=== PATIENT | male | born 1975 | race Caucasian/White ===

== ENCOUNTER 2024-05-03 07:47 | Day surgery (SDC) | payer OTHER ==
[~2024-05-03] VITALS: Ht 182.9 cm; Wt 85.2 kg
[~2024-05-03 07:47] MED LIST: Lactated Ringer's 1,000 ML IV ONE; propofoL 50 ML IV ONE
[2024-05-03] MEDS ORDERED: ALBU90OI (08:07)
[2024-05-03] MEDS ORDERED: CENTRUM SILVER1 EAC2 (08:08)
[2024-05-03] MEDS ORDERED: CHLO4 (08:08)
[2024-05-03] MEDS ORDERED: Lactated Ringer's 1,000 ML IV ONE (08:46)
[2024-05-03 10:20] VITALS: BP 106/89
== END 2024-05-03 10:19 | disposition home or self-care (01) ==
LOC: ORSCSDS 07:47
PROVIDERS: Internal Medicine Gastroenterology
PROC: 0DBK8ZX Excision of Ascending Colon, Via Natural or Artificial Opening Endoscopic, Diagnostic (ICD-10-PCS; principal; 2024-05-03 09:00)
PROC: 0DBP8ZX Excision of Rectum, Via Natural or Artificial Opening Endoscopic, Diagnostic (ICD-10-PCS; principal; 2024-05-03 09:00)
DX: Z12.11 Encounter for screening for malignant neoplasm of colon (principal); D12.2 Benign neoplasm of ascending colon; K62.1 Rectal polyp; J45.909 Unspecified asthma, uncomplicated; Z79.899 Other long term (current) drug therapy
CPT/HCPCS: 88305; J2704; J7120